=== PATIENT | male | born 1980 | race Caucasian/White ===

== ENCOUNTER 2020-11-14 07:23 | Emergency (ER) | payer MEDICAID, SELFPAY ==
--- NOTE | ~2020-11-14 | XR_ITS ---
EXAMINATION: XR CHEST CLINICAL INFORMATION: Fever and left lower lobe crackles. COMPARISON: None TECHNIQUE: 2 views of the chest were obtained. FINDINGS: Subtle opacities are seen in the left midlung in the perihilar region. Right lung is clear. There are no pleural effusions. The heart and mediastinal structures are unremarkable. XR/XR chest 2V IMPRESSION: Subtle opacities in the left midlung in the perihilar region may be projectional representing summation artifact however a small infiltrate cannot be excluded.
[2020-11-14 07:39] VITALS: BP 101/63; PULSE 103; RESP 18; TEMP 37.8; O2SAT 98; BMI 26.2
--- NOTE | 2020-11-14 07:40 | ED_ITS ---
HPI - Fever General Chief Complaint: Headache Stated Complaint: headache,abd pain Time Seen by Provider: 11/14/20 07:39 Source: patient Mode of arrival: ambulatory Limitations: no limitations History of Present Illness HPI Narrative: Headache and fever with abdominal pain for one week MD elicited complaint: fever, malaise and weakness Onset (ago): week(s) Context: other(s) with similar symptoms Exacerbating factors: nothing Relieving factors: nothing Associated symptoms: abdominal pain Related Data Allergies Allergy/AdvReac Type Severity Reaction Status Date / Time No Known Allergies Allergy Verified 11/14/20 07:41 Review of Systems Constitutional: Constitutional: Reports no additional constitutional complaints Eyes: Eyes: Reports no additional eye complaints ENT: Denies dizziness Cardiovascular: Cardiovascular: Reports no additional cardiovascular complaints Respiratory: Respiratory: Reports as per HPI Gastrointestinal: Gastrointestinal: Reports no additional gastrointestinal complaints Musculoskeletal: Musculoskeletal: Reports no additional musculoskeletal complaints Integumentary/Breasts: Skin/Breast: Denies rash Neurologic: Reports system reviewed and no additional complaints, except as documented, Denies dizziness and Denies Sensory deficit (Neuro) Psychiatric: Psychiatric: Denies anxiety [facility] Past Medical History Medical History No known health problems Social History Social History Advance Directives: Yes Advance Directives Information Provided: No Advance Directives on File: No Physical Exam Vital Signs: Vital Signs: Last Vital Signs Temp 100.1 F 11/14/20 07:39 Pulse 103 H 11/14/20 07:39 Resp 18 11/14/20 07:39 BP 101/63 11/14/20 07:39 Pulse Ox 98 11/14/20 07:39 Body Mass Index 26.2 Const: General: healthy appearing Nutritional Appearance: average body habitus Orientation/consciousness: oriented to person and patient oriented x3 Limitations: no limitations HENMT: Head: Yes normal to inspection Ears: external ears normal General nose exam: Normal external nose present Mouth: Normal oral and palatal mucosa present and oropharynx normal Throat: Yes posterior oropharynx normal Eyes: General: appearance normal, both eyes and all related structures Neck: Other: supple Neck: Yes normal visual inspection Chest: Chest palpation & inspection: normal inspection of the chest Resp: Other: Crackles in the left lower lung Cardio: Jugular venous distension: no JVD Rate: regular rate Rhythm: regular rhythm Heart sounds: S1 normal heart sound present and S2 normal heart sound present GI: Inspection: Yes normal to inspection Palpation (GI): Soft to palpation, nontender and No hepatosplenomegaly present Auscultation: normal bowel sounds : General: Yes no CVA tenderness Back/Spine/Pelvis: Back: no CVA tenderness Skin: General skin exam: no rashes or lesions noted Neuro: General: oriented to person and patient oriented x3 Cranial nerves: Yes CN's II-XII intact bilaterally Motor exam (neuro): 5/5 motor strength present throughout Sensory Exam: No Sensory deficit (Neuro) Extrem: General: Yes normal to inspection Psych: Appearance: grossly normal Course Course Course Narrative: Patient looking well COVID positive will dc home MDM - Fever Lab Data Labs: Lab Results 11/14/20 Range/Units 08:40 Coronavirus (PCR) POSITIVE A (Negative) Influenza Type A (PCR) NEGATIVE (Negative) Influenza Type B (PCR) NEGATIVE (Negative) RSV RNA Qual (PCR) NEGATIVE (Negative) Imaging Data Chest x-ray: Radiologist's impression: no infiltrate, subtle markings on Left Discharge Plan Discharge Clinical Impression: 2019 novel coronavirus disease (COVID-19) Patient Disposition: Home, Self-Care Instructions: COVID-19 (Coronavirus Disease 2019) (ED) Additional Instructions: return for increase SOB, take tylenol and motrin for headache and fever Referrals: Name,MD Arsalan [Primary Care Provider] - 2 days
[2020-11-14 08:00] VITALS: BP 100/59; PULSE 81; RESP 18; TEMP 36.9; O2SAT 92
[2020-11-14] MEDS: Ibuprofen 800 MG TABLET PO (08:10)
[2020-11-14 09:28] LABS: Influenza A PCR NEGATIVE (Negative); Influenza B PCR NEGATIVE (Negative); Resp Syncy Virus RNA Qual PCR NEGATIVE (Negative); SARS COV2 PCR INHOUSE POSITIVE (Negative)
== END 2020-11-14 10:02 | disposition home or self-care (01) ==
PROVIDERS: Emergency Provider Emergency Medicine; PCP Internal Medicine Geriatric Medicine
DX: U07.1 COVID-19 (principal); R51.9 Headache, unspecified; R50.9 Fever, unspecified
CPT/HCPCS: 0241U; 36415; 71046; 99283; 99284

== ENCOUNTER 2020-12-17 11:53 | Emergency (ER) | payer MEDICAID, SELFPAY ==
--- NOTE | ~2020-12-17 | XR_ITS ---
EXAMINATION: XR SHOULDER, RIGHT CLINICAL INFORMATION: Injury. Assess for dislocation COMPARISON: 09/23/2019 TECHNIQUE: Two views of the right shoulder. FINDINGS: Anterior dislocation of the right humeral head from the glenoid. On the external rotation view, there may be fragmentation of the inferior glenoid. The acromioclavicular joint is intact and unremarkable. XR/XR shoulder RT min 2V IMPRESSION: Anterior right shoulder dislocation. There may be associated fracture of the glenoid, which would be better seen utilizing CT.
--- NOTE | ~2020-12-17 | XR_ITS ---
EXAMINATION: XR SHOULDER, RIGHT CLINICAL INFORMATION: Post reduction COMPARISON: Earlier same date TECHNIQUE: Three views of the right shoulder. XR/XR shoulder RT min 2V FINDINGS/IMPRESSION: Interval reduction. Crescentic density along the anteroinferior glenoid reflective of an osseous Bankart. Hill-Sachs impaction deformity, mild. Soft tissues unremarkable.
[2020-12-17 12:00] VITALS: BP 128/91; PULSE 98; RESP 20; TEMP 36.8; O2SAT 96; BMI 31.7
--- NOTE | 2020-12-17 12:20 | ED.EXTPRO ---
HPI - Extremity Problem General Chief complaint: Extremity Injury, Upper Stated complaint: SHOULDER DISLOCATED Time Seen by Provider: 12/17/20 12:20 History of Present Illness HPI Narrative: Patient complains of right shoulder pain after sliding into 1st base and believes he dislocated the shoulder, no numbness weakness or tingling no neck pain no chest pain no back pain Related Data Previous Rx's Medication Instructions Recorded ibuprofen 600 mg PO Q6H PRN #20 tab 12/17/20 oxycodone-acetaminophen [Percocet] 1 tab PO Q6H PRN #14 tab 12/17/20 Allergies Allergy/AdvReac Type Severity Reaction Status Date / Time No Known Allergies Allergy Verified 11/14/20 07:41 Review of Systems Review of Systems: Positive for right shoulder pain Negatives are no headache no head injury no neck pain no chest pain or shortness of breath no back pain no numbness weakness or tingling PMFSH Past Medical History PMFSH Narrative: Patient has prior shoulder dislocation playing football couple years ago which he reduced himself, and has had shoulder pain intermittently for the past couple years and seen orthopedics who thought he might have of rotator cuff tear Source: nursing notes reviewed Medical History No known health problems Social History Social History Alcohol intake: never Smoking Status: Never smoker Use of substances other than those prescribed or required for medical reasons: No Advance Directives: No Advance Directives Information Provided: Yes Physical Exam Vital Signs: Vital Signs: Last Vital Signs Temp 98.2 F 12/17/20 12:37 Pulse 98 12/17/20 12:37 Resp 20 12/17/20 12:37 BP 128/91 H 12/17/20 12:37 Pulse Ox 96 12/17/20 12:37 Body Mass Index 31.7 General appearance uncomfortable appearing, holding his shoulder in a position of comfort Head is normocephalic atraumatic Neck is supple nontender Chest wall nontender no respiratory distress The right shoulder appears to be deformed and dislocated, it is neurovascular intact distal, there is no focal tenderness on clavicle humerus or elbow The back has full range of motion The skin no rash or laceration Other extremities are normal Neuro no gross motor or sensory deficits Course Course Course Narrative: X-ray demonstrated right anterior shoulder dislocation I attempted to reduce it without medication using external rotation this was too uncomfortable for the patient so he was given a muscle relaxer and pain medication He reduced it himself after pain medication by attempting external rotation and it popped right back in Confirmatory x-ray shows shoulder back in place, but did show Hill sachs and Bankart lesions and patient is given a sling and discharge Discharge Plan Discharge Clinical Impression: Dislocation of right shoulder joint Qualifiers: Encounter type: initial encounter Qualified Code(s): S43.004A - Unspecified dislocation of right shoulder joint, initial encounter Patient Disposition: Home, Self-Care Additional Instructions: Follow with orthopedist for further evaluation Follow-up x-ray showed shoulder back in place, but does show some injury to the shoulder joint from repeated dislocation Return any time any concerns Prescriptions: New oxycodone-acetaminophen [Percocet] 5-325 mg tablet 1 tab PO Q6H PRN (Reason: pain) Qty: 14 RF: 0 ibuprofen 600 mg tablet 600 mg PO Q6H PRN (Reason: pain) Qty: 20 RF: 0 Referrals: Telma Leiva MD [Physician] - 2 days (Recurrent shoulder dislocation right side) Interventions: ED Discharge Assessment Last Done: 12/17/20 14:28 Discharge Date/Time: 12/17/20 14:29
[2020-12-17 12:37] VITALS: BP 128/91; PULSE 98; RESP 20; TEMP 36.8; O2SAT 96
[2020-12-17] MEDS: oxyCODONE HCl Immed Release 5 MG TABLET 10 MG PO (12:43)
[2020-12-17] MEDS: LORazepam 1 MG TABLET PO (12:44)
[2020-12-17] MEDS: Ketorolac Tromethamine 30 MG/ML VIAL IM (12:44)
== END 2020-12-17 14:29 | disposition home or self-care (01) ==
PROVIDERS: Emergency Provider Emergency Medicine; PCP Internal Medicine Geriatric Medicine
DX: S43.004A Unspecified dislocation of right shoulder joint, initial encounter (principal); M25.511 Pain in right shoulder; Y93.64 Activity, baseball; Y93.9 Activity, unspecified; Y92.320 Baseball field as the place of occurrence of the external cause; Y99.9 Unspecified external cause status
CPT/HCPCS: 73030; 96372; 99284; J1885

== ENCOUNTER → 2021-01-03 13:26 | Outpatient (BNVA) | payer MEDICAID, SELFPAY | PROVIDERS: PCP Internal Medicine Geriatric Medicine; Visit Provider Physician Assistant | DX: S43.004A Unspecified dislocation of right shoulder joint, initial encounter (principal) | CPT/HCPCS: 99202 ==

== ENCOUNTER 2021-02-28 13:04 | Outpatient (REF) | payer MEDICAID, SELFPAY ==
--- NOTE | ~2021-02-28 | FL_ITS ---
EXAMINATION: XR ARTHROGRAM SHOULDER, RIGHT CLINICAL INFORMATION: Right shoulder dislocation COMPARISON: Previous x-rays most recent 12/17/2020 TECHNIQUE: Procedure and risks and benefits including bleeding and infection were discussed with the patient through an insulating machine operator and informed consent was obtained. The anterior shoulder was prepped and draped in the usual sterile fashion. The skin and soft tissues were anesthetized with 1% lidocaine plain. Using fluoroscopic guidance and a 22-gauge, access to the right shoulder joint was obtained. 1 to 2 mL Omnipaque 350 contrast was injected fluoroscopically confirming adequate placement in the joint space. Subsequently, a mixture of dilute gadolinium, saline and 1% lidocaine plain was injected into the right shoulder joint pre-MRI. FINDINGS: There is a Hill Sac deformity. There is a well-corticated soft tissue ossification inferior to the glenoid suggestive of old osseous Bankhart lesion as well. These findings appear unchanged from previous x-ray 12/17/2020. . FLUOROSCOPY TIME: 0.2 minutes DOSE AREA PRODUCT: 0.9 francois per square centimeter squared. 1 saved fluoroscopic image. FL/FL arthrogram shoulder RT IMPRESSION: Right shoulder pre-MRI arthrogram.
--- NOTE | ~2021-02-28 | MR_ITS ---
EXAMINATION: MR SHOULDER WITH CONTRAST, RIGHT CLINICAL INFORMATION: Softball injury. Dislocated. Surgery December 2020. COMPARISON: Radiograph dated 12/17/2020. TECHNIQUE: MRI of the shoulder was performed following the intra-articular administration of a dilute gadolinium-containing solution (arthrogram) on a high-field scanner. FINDINGS: ROTATOR CUFF: Intact. No muscle atrophy or fatty infiltration. BICEPS: Intact. CORACOACROMIAL ARCH: The undersurface of the acromion is curved with no subacromial spur. Mild acromioclavicular osteoarthritis. LABRUM/CAPSULE: There is a tear of the anterior-inferior labrum between the anterior 3 o'clock position and posteroinferior 7 o'clock position with detachment and peripheral displacement of the anteroinferior labral tissue. There is a thin band of low signal intensity along the free edge margin of the superior and posterior labrum which may correspond to a thin marginal labral flap fragment. The capsular attachment of the axillary pouch to the inferior glenoid rim appears thickened and irregular, likely due to an avulsive injury. Anterior band of the inferior glenohumeral ligament appears intact. GLENOHUMERAL JOINT/MARROW: There is a comminuted avulsion fracture at the greater tuberosity corresponding to the insertions of both the supraspinatus and infraspinatus tendons. The area of the fracture measures 3.2 x 2.2 cm (AP by craniocaudal). There is underlying marrow edema and cystic change along the fracture line. Fracture fragments are minimally displaced. Additionally, there is a 1.6 x 2.2 cm area of cortical depression at the humeral head posteriorly with a depth of up to 3 mm, consistent with a Hill-Sachs injury. There is mild surrounding non-uniform chondral thinning at the humeral head posterosuperiorly and posteromedially. A well-defined measurable Bankart fracture fragment is not well seen along the glenoid, though there is cortical irregularity between the anteroinferior 4 o'clock position and inferior 6 o'clock position over an AP diameter of 2 cm. A small minimally displaced cortical Bankart fracture in this region is possible. Glenohumeral articular cartilage appears relatively well preserved. MR/MR shoulder RT w con IMPRESSION: 1. Tear of the anteroinferior glenoid labrum with a probable thin nondisplaced cortical Bankart fracture from the glenoid rim. 2. Comminuted nondisplaced avulsion fracture at the supraspinatus and infraspinatus tendon insertions of the greater tuberosity. No rotator cuff tear. 3. Shallow Hill-Sachs deformity with mild surrounding non-uniform chondral thinning.
== END 2021-02-28 13:05 | disposition home or self-care (01) ==
LOC: HO.MRI 13:04
PROVIDERS: PCP Internal Medicine Geriatric Medicine; Visit Provider Physician Assistant
DX: S43.004A Unspecified dislocation of right shoulder joint, initial encounter (principal)
CPT/HCPCS: 23350; 73040; 73222; A9585

== ENCOUNTER → 2021-11-10 09:41 | Outpatient (BNVA) | payer MEDICAID, SELFPAY | PROVIDERS: PCP Internal Medicine Geriatric Medicine; Visit Provider Physician Assistant | DX: S43.004D Unspecified dislocation of right shoulder joint, subsequent encounter (principal) | CPT/HCPCS: 99212 ==

== ENCOUNTER 2023-05-31 09:16 | Outpatient (REF) | payer MEDICAID, SELFPAY ==
[2023-05-31 12:08] LABS: Basophils Absolute Auto 0.1 X10*3/uL (0.0-0.2); Basophils Percent Auto 0.6 % (0-2); Eosinophils Absolute Auto 0.1 X10*3/uL (0.0-0.4); Eosinophils Percent Auto 0.8 % (0-4); Hematocrit 48.3 % (42.0-52.0); Hemoglobin 15.8 g/dl (14.0-18.0); Imm Gran Abs Auto 0.08 X10*3/uL (0.00-0.03); Imm Gran Pct Auto 0.7 % (0.0-0.4); Lymphocytes Absolute Auto 4.6 X10*3/uL (1.2-4.9); Lymphocytes Percent Auto 37.8 % (20-40); MANUAL DIFF FLAG SCAN; Mean Corpuscular HGB Conc 32.7 g/dl (31.0-36.0); Mean Corpuscular Hemoglobin 30.2 pg (27.0-33.0); Mean Corpuscular Volume 92.2 fL (80.0-98.0); Mean Platelet Volume 10.3 fL (9.4-12.4); Monocytes Absolute Auto 1.4 X10*3/uL (0.1-1.2); Monocytes Percent Auto 11.4 % (2-11); Neutrophils Percent Auto 48.7 % (45-73); Platelet Count 276 X10*3/uL (160-400); Red Blood Count 5.24 X10*6/uL (4.60-5.80); Red Cell Distribution Width 12.4 % (11.0-16.0); SCAN SMEAR FLAG 1; White Blood Count 12.2 X10*3/uL (4.8-10.8)
[2023-05-31 12:54] LABS: Alanine Aminotransferase 55 U/L (0-40); Albumin Level 4.8 g/dL (3.5-5.0); Alkaline Phosphatase 90 U/L (39-117); Anion Gap 16 (12-20); Aspartate Amino Transferase 29 U/L (5-37); Blood Urea Nitrogen 20 mg/dL (9-16); Calcium 9.9 mg/dL (8.4-10.2); Carbon Dioxide 26 mmol/L (22-29); Chloride 104 mmol/L (96-108); Estimated Glomerular Filt Rate > 60; Glucose Random 88 mg/dL (60-115); Potassium 4.5 mmol/L (3.3-5.1); Sodium 141 mmol/L (135-145); Total Protein 7.5 g/dL (6.5-8.0)
[2023-05-31 13:02] LABS: SLIDE REVIEW VERIFIED
== END 2023-05-31 09:17 | disposition home or self-care (01) ==
LOC: HO.HHCL 09:16
PROVIDERS: Visit Provider Family Medicine
DX: R59.0 Localized enlarged lymph nodes (principal)
CPT/HCPCS: 36415; 80053; 85025

== ENCOUNTER 2023-06-24 14:48 | Outpatient (REF) | payer MEDICAID, SELFPAY ==
--- NOTE | ~2023-06-24 | US_ITS ---
EXAMINATION: US SOFT TISSUE HEAD/NECK CLINICAL INFORMATION: Localized enlarged lymph nodes. COMPARISON: None available. TECHNIQUE: Linear transducer francois-scale and color Doppler examination of the area indicated by patient-right posterior cervical area and left anterior cervical area. FINDINGS: Bilateral cervical lymphadenopathy the largest a 2.5 x 1.6 x 1.6 cm right level 1B cervical node and a 2.9 x 1.3 x 2.0 cm left level Ib cervical node. US/US soft tiss head and/or neck IMPRESSION: Bilateral large cervical nodes measuring 1.6 cm short axis on the right and 1.3 similar short axis on the left. Recommend correlation with tissue sampling. The report will be called to the ordering clinician by a [facility] Blueprint Developer.
== END 2023-06-24 14:49 | disposition home or self-care (01) ==
LOC: HO.US 14:48
PROVIDERS: Visit Provider Family Medicine
DX: R59.0 Localized enlarged lymph nodes (principal)
CPT/HCPCS: 76536

== ENCOUNTER 2024-05-26 08:18 | Outpatient (REF) | payer MEDICAID, SELFPAY ==
[2024-05-26 11:44] LABS: Basophils Absolute Auto 0.1 X10*3/uL (0.0-0.2); Basophils Percent Auto 0.8 % (0-2); Eosinophils Absolute Auto 0.1 X10*3/uL (0.0-0.4); Eosinophils Percent Auto 0.9 % (0-4); Hematocrit 48.7 % (42.0-52.0); Hemoglobin 16.2 g/dl (14.0-18.0); Imm Gran Abs Auto 0.04 X10*3/uL (0.00-0.03); Imm Gran Pct Auto 0.4 % (0.0-0.4); Lymphocytes Absolute Auto 5.3 X10*3/uL (1.2-4.9); Lymphocytes Percent Auto 47.7 % (20-40); MANUAL DIFF FLAG SCAN; Mean Corpuscular HGB Conc 33.3 g/dl (31.0-36.0); Mean Corpuscular Hemoglobin 30.1 pg (27.0-33.0); Mean Corpuscular Volume 90.4 fL (80.0-98.0); Mean Platelet Volume 10.4 fL (9.4-12.4); Monocytes Percent Auto 8.7 % (2-11); Neutrophils Absolute Auto 4.6 x10*3/uL (2.0-8.3); Neutrophils Percent Auto 41.5 % (45-73); Platelet Count 273 X10*3/uL (160-400); Red Blood Count 5.39 X10*6/uL (4.60-5.80); Red Cell Distribution Width 12.2 % (11.0-16.0); SCAN SMEAR FLAG 1; White Blood Count 11.1 X10*3/uL (4.8-10.8)
[2024-05-26 12:11] LABS: SLIDE REVIEW VERIFIED
[2024-05-26 12:12] LABS: Estimated Average Glucose 108 mg/dL; Hemoglobin A1C 143.6734 umol/L; Hemoglobin A1c % 5.4 % (<6.0); Total Hemoglobin (HGBA1C) 4045.9595 umol/L
[2024-05-26 12:18] LABS: Alanine Aminotransferase 27 U/L (0-40); Albumin Level 4.7 g/dL (3.5-5.0); Alkaline Phosphatase 85 U/L (39-117); Anion Gap 10 (12-20); Aspartate Amino Transferase 16 U/L (5-37); Bilirubin Total 0.6 mg/dL (0.0-1.0); Blood Urea Nitrogen 19 mg/dL (9-16); Calcium 9.3 mg/dL (8.4-10.2); Carbon Dioxide 26 mmol/L (22-29); Chloride 107 mmol/L (96-108); Cholesterol 124 mg/dL (<200); Estimated Glomerular Filt Rate > 60; Glucose Random 96 mg/dL (60-115); HDL Cholesterol 42 mg/dL (>40); LDL Cholesterol Calculated 72 mg/dL (<100); Sodium 139 mmol/L (135-145); Triglycerides 51 mg/dL (<150)
[2024-05-26 12:33] LABS: Reflex LDLD? No
[2024-05-26 12:34] LABS: Vitamin D 25-OH Total 43.1 ng/mL (>30)
[2024-05-26 12:53] LABS: HBS Num1 0.24 mIU/mL (0-7.99); HBc Num1 0.17 S/CO (0.00-0.79); HBsAGNum1 0.42 S/CO (0.00-0.99); HIV AB/AG Nonreactive (Nonreactive); HIV Num 1 0.05 S/CO (0.00-0.99); Hepatitis A Antibody IgM 0.15 Index (0-0.79); Hepatitis B Core Antibody Nonreactive (Nonreactive); Hepatitis B Surface Antigen Negative (Negative); ~HepC Num1 0.15 S/CO (0.00-0.79); ~Hepatitis A Antibody IgM Nonreactive (Nonreactive); ~Hepatitis B Surface Antibody NONREACTIVE (Nonreactive); ~Hepatitis C Antibody Nonreactive (Nonreactive)
== END 2024-05-26 08:19 | disposition home or self-care (01) ==
LOC: HO.HHCL 08:18
PROVIDERS: Visit Provider Internal Medicine
DX: Z00.00 Encounter for general adult medical examination without abnormal findings (principal)
CPT/HCPCS: 36415; 80053; 80061; 82306; 83036; 85025; 86704; 86706; 86709; 86803; 87340; 87389

== ENCOUNTER 2024-12-02 14:56 | Emergency (ER) | payer OTHER, SELFPAY ==
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
[2024-12-02 15:02] VITALS: BP 150/100; PULSE 96; O2SAT 99
[2024-12-02 15:07] VITALS: BP 137/88; PULSE 84; RESP 16; TEMP 36.6; O2SAT 98
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
[2024-12-02 15:14] VITALS: BMI 26.9
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
[2024-12-02 15:21] VITALS: BP 137/88; PULSE 84; RESP 16; O2SAT 98; BMI 26.9
[2024-12-02 17:04] VITALS: BP 130/73; PULSE 79; RESP 18; TEMP 36.8; O2SAT 98
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
--- OUTSIDE RECORDS SUMMARY | 2024-12-02 18:07 | XMS_ITS | Encounter Summary ---
Author Organization [email or web address] [facility] Address [address] [place] [address] [address] [place] [address] Care Team Providers Care [employer] Name Role Phone Name, Arsalan FRASER Primary Care Provider [phone] Mercy Lugo MD Primary Care Provide r Encounter Details Date Type Department Care Team (Latest Contact Info) Description 12/31/2018 Abstract [facility] CONVERSIONS Dental, Provider, DDS Social History Tobacco Use Types Packs/Day Years Used Date Smoking Tobacco: Never Assessed Sex and Gender Information Value Date Recorded Sex Assigned at Male 06/18/2022 10:33 AM EDT Legal Sex Male 10:33 AM EDT Gender Identity Male 06/18/2022 10:33 AM EDT Sexual Orientation Straight 06/18/2022 10 :33 AM EDT documented as of this encounter Plan of Treatment Not on file documented as of this encounter Visit Diagnoses Not on filedocumented in this encounter Care Teams [employer] Relationship Specialty Start Date End Date Name, MD Arsalan [address] [place] [address] PCP - General Family Medicine 11/15/17 05/07/23 Mercy Lugo MD [address] [place], [place] [phone] PCP - General Internal Medicine 04/01/24 documented as of this encounter
--- OUTSIDE RECORDS SUMMARY | 2024-12-02 18:07 | XMS_ITS | Encounter Summary ---
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 Name Role Phone Mercy Lugo MD Primary Care Provide r Encounter Details Date Type Department Care Team (Late st Contact Info) Description 12/02/2024 Orders Only [facility] External Provider, [facility] Social History Tobacco Use Types Packs/Day Years Used Date Smoking Tobacco: Never Passive Smoke Exposure: Never Smokeless Tobacco: Never Alcohol Use Standard Drinks/Week Comments Never 0 [...] on file documented as of this encounter Procedures Procedure Name Priority Date/Time Associated Diagnosis Comments CT CERVICAL SPINE WO CONTRAST Routine 12/02/2024 4:[address] HEAD WO CONTRAST Routine 12/02/2024 3 :16 PM EDT documented in this encounter Results * CT Cervical Spine w/o Contrast (12/02/2024 4:02 PM EDT) Anatomical Region Laterality Modality Spine, C-spine Computed Tomogra phy 12/02/2024 4:02 PM EDT Narrative 12/02/2024 4:45 PM EDT ? [facility] ?[address] ?[place] [address] ? CT Scan Report ? Signed ? Patient: Luke Tarango ?MR#: ?? [id number] ? : 1980 ?Acct:[id number] ? Age/Sex: 44 / M ?ADM Date: 12/02/24 ? Loc: HO.ED ? Attending Dr: ? Ordering Physician: Emelina Trimble ?? Date of Service: 12/02/24 ?? Procedure(s): CT cervical spine wo IV con ?? Accession Number(s): [id number] ? cc: Emelina Trimble; [facility] ? Report Number: ?? [id number]: Total DLP = ??430.00 mGy-cm ?? EXAMINATION: [...] Bajwa MD in OV> ?12/02/24 1642 ? DD/DT: // 1602 ? TD/TT: // 1624 ? Carboy Filler: ? Procedure Note Donotuseinterpreter, Image - 12/02/[address] [address] [address] Scan Report Signed Patient: Luke TarangoMR#: [id number] : 1980Acct:[id number] Age/Sex: 44 / MADM Date: 12/02/24 Loc: HO.ED Attending Dr: Ordering Physician: Emelina Trimble Date of Service: 12/02/24 Procedure(s): CT cervical spine wo IV con Accession Number(s): [id number] cc: Emelina Trimble; [facility] Report Number: [id number]: Total DLP = 430.00 mGy-cm EXAMINATION: CT [...] 12/02/24 1642 DD/ 1602 TD/TT: 12/02/24 1624 Carboy Filler: [facility] External Provider IMG CT PROCEDURES Final Result * CT Head w/o Contrast (12/02/2024 3:16 PM EDT) Anatomical Region Laterality Modality Head, Neck Computed Tomogra phy 12/02/2024 3:16 PM EDT Narrative 12/02/2024 4:39 PM EDT ? [facility] ?[address] ?[place] [address] ? CT Scan Report ? Signed ? Patient: Luke Tarango ?MR#: ?? [id number] ? : 1980 ?Acct:[id number] ? Age/Sex: 44 / M ?ADM Date: 12/02/24 ? Loc: HO.ED ? Attending Dr: ? Ordering Physician: Emelina Trimble ?? Date of Service: 12/02/24 ?? Procedure(s): CT head/brain wo IV con ?? Accession Number(s): [id number] ? cc: Emelina Trimble; [facility] ? Report Number: ?? [id number]: Total DLP = ??895.00 mGy-cm ?? EXAMINATION: [...] DD/ 1516 ? TD/TT: 12/02/24 1624 ? Carboy Filler: ? Procedure Note Raina Newton - 12/02/[address] [address] [address] Scan Report Signed Patient: Luke TarangoMR#: [id number] : 1980Acct:[id number] Age/Sex: 44 / MADM Date: 12/02/24 Loc: HO.ED Attending Dr: Ordering Physician: Emelina Trimble Date of Service: 12/02/24 Procedure(s): CT head/brain wo IV con Accession Number(s): [id number] cc: Emelina Trimble; [facility] Report Number: [id number]: Total DLP = 895.00 mGy-cm EXAMINATION: CT [...] 12/02/24 1636 DD/ 1516 TD/TT: 12/02/24 1624 Carboy Filler: [facility] External Provider IMG CT PROCEDURES Final Result documented in this encounter Visit Diagnoses Not on filedocumented in this encounter Additional Health Concerns Assessment Noted Time PHQ-9 Depression Total Score: 0 04/01/20 9:49 AM EDT documented as of this encounter Care Teams Power Shovel Mechanic Relationship Specialty Start Date End Date Mercy Lugo MD [address] [place] [id number] PCP - General Internal Medicine 04/01/24 documented as of this encounter
== END 2024-12-02 17:15 | disposition home or self-care (01) ==
PROVIDERS: Emergency Provider Emergency Medicine
DX: S16.1XXA Strain of muscle, fascia and tendon at neck level, initial encounter (principal); V33.5XXA Driver of three-wheeled motor vehicle injured in collision with car, pick-up truck or van in traffic accident, initial encounter; E21.5 Disorder of parathyroid gland, unspecified; Y93.89 Activity, other specified; Y92.414 Local residential or business street as the place of occurrence of the external cause; Y99.9 Unspecified external cause status
CPT/HCPCS: 70450; 72125; 99284

== ENCOUNTER → 2024-12-02 15:16 | Outpatient (BNV) | payer OTHER, SELFPAY | PROVIDERS: Emergency Provider Emergency Medicine; Visit Provider Radiology Diagnostic Radiology | DX: R59.9 Enlarged lymph nodes, unspecified (principal); S09.90XA Unspecified injury of head, initial encounter | CPT/HCPCS: 70450; 72125 ==

== ENCOUNTER → 2024-12-29 15:40 | Outpatient (BNV) | payer MEDICAID, SELFPAY | PROVIDERS: Visit Provider Internal Medicine Medical Oncology | DX: K11.8 Other diseases of salivary glands (principal) | CPT/HCPCS: 99204 ==